=== PATIENT | male | born 1945 | race Caucasian/White ===

== ENCOUNTER 2017-09-17 11:35 | Emergency (ER) | payer OTHER ==
--- NOTE | 2017-09-17 13:12 | EDPHY ---
H & P Time Seen by Provider: 09/17/17 12:59 HPI/ROS: CHIEF COMPLAINT: Right leg swelling and pain HISTORY OF PRESENT ILLNESS: Patient is a history of stroke and is on Eliquis, he has not missed any recent doses. He had some dry needling done on Tuesday at the [facility] for some painful symptoms in his right leg, and then the next day he noticed some pain and swelling in his right medial calf. It is a little bit ecchymotic and swollen and painful and worse with palpation. Not associated with chest pain or shortness of breath or fever or other skin changes or proximal red streaking. REVIEW OF SYSTEMS: Eye: no change in vision ENT: no sore throat Cardiac: no chest pain or syncope Pulmonary: no cough or SOB Abdomen: no vomiting, diarrhea, abdominal pain Musculoskeletal: As in HPI Skin: As in HPI Neuro: no headache Constitutional: no fever : no urinary symptoms A comprehensive 10 point review of systems is otherwise negative aside from elements mentioned in the history of present illness. PAST MEDICAL HISTORY: Stroke and hypertension on Eliquis Social history: General Appearance: Alert and conversant, cooperative. Eyes: No scleral icterus. ENT, Mouth: Normal mucous membranes. Respiratory: Normal respiratory effort, breath sounds equal, lungs are clear to auscultation. Cardiovascular: Regular rate and rhythm. Gastrointestinal: Abdomen is soft and non tender. Neurological: Alert, face symmetric, normal motor and sensory in extremities. Skin: Patient has a 5 cm diameter area of bruising and some induration and tenderness on his right medial calf. Compartments are otherwise soft. No redness or warmth or blisters or swelling overlying the surface, no lymphangitis. Normal motor sensory and dorsalis pedis pulse in the right foot. Musculoskeletal: Compartments are soft and no bony tenderness. Psychiatric: Not agitated. Emergency Department course/MDM: Patient likely has a subcutaneous hematoma, my suspicion for cellulitis or other infection is low. I do not think he has a fracture. I do not think he has compartment syndrome. Unlikely to be DVT on Eliquis. Patient is very concerned requesting ultrasound , will do so and discharge if negative except for subcutaneous hematoma. Negative ultrasound per Dr. Arias at 2:17 p.m.. Smoking Status: Never smoked Constitutional: Initial Vital Signs Temperature (C) 36.9 C 09/17/17 11:40 Heart Rate 63 09/17/17 11:40 Respiratory Rate 16 09/17/17 11:40 Blood Pressure 112/80 09/17/17 11:40 O2 Sat (%) 94 09/17/17 11:40 O2 Delivery Mode Room Air Allergies/Adverse Reactions: No Known Allergies Allergy (Verified 09/17/17 11:45) Home Medications: Medication Instructions Recorded Aspirin [Aspirin 81mg (OTC)] 81 mg PO DAILY 08/11/13 Atorvastatin Calcium [Lipitor 20 20 mg PO Q2D 08/11/13 mg (RX)] Dutasteride [Avodart 0.5 MG (RX)] 0.5 mg PO Q72H 08/11/13 Ezetimibe [Zetia 10 MG (RX)] 10 mg PO DAILY 08/11/13 Hydrochlorothiazide 25 MG (RX) 25 mg PO DAILY 08/11/13 Losartan Potassium [Cozaar 50 mg 50 mg PO BID 08/11/13 (RX)] amLODIPine BESYLATE [Norvasc 10 mg 10 mg PO BID 08/11/13 (RX)] Apixaban [Eliquis] 2.5 mg PO 09/17/17 Medical Decision Making - Diagnostics Imaging Results: Negative ultrasound for DVT Imaging: I viewed and interpreted images myself Departure - Departure Disposition: Home, Routine, Self-Care Clinical Impression: Hematoma of lower extremity Qualifiers: Encounter type: initial encounter Laterality: right Qualified Code(s): S80.11XA - Contusion of right lower leg, initial encounter Condition: Good Instructions: Hematoma (ED) Referrals: MOIZ FANG [Primary Care Provider] - As per Instructions
[2017-09-17 14:19] VITALS: BP 119/68; PULSE 75; RESP 19; TEMP 98.1; O2SAT 95
== END 2017-09-17 14:22 | disposition home or self-care (01) ==
DX: M79.81 Nontraumatic hematoma of soft tissue (principal); I10 Essential (primary) hypertension; Z79.82 Long term (current) use of aspirin